=== PATIENT | female | born 1965 | race Caucasian/White ===

== ENCOUNTER 2017-08-10 16:18 | Emergency (ER) | payer OTHER ==
[2017-08-10 16:39] VITALS: BP 144/84
[2017-08-10] MEDS ORDERED: IBUPROFEN 600 MG TABLET PO ONE (17:35)
[2017-08-10] MEDS ORDERED: CYCLOBENZAPRINE HCL 10 MG TABLET PO ONE (17:35)
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
== END 2017-08-10 18:51 | disposition home or self-care (01) ==
LOC: ER 16:18
DX: S40.012A Contusion of left shoulder, initial encounter (principal); S60.222A Contusion of left hand, initial encounter; S60.221A Contusion of right hand, initial encounter; M79.602 Pain in left arm; M79.652 Pain in left thigh; M54.2 Cervicalgia; R51 Headache; M54.9 Dorsalgia, unspecified; V43.52XA Car driver injured in collision with other type car in traffic accident, initial encounter
CPT/HCPCS: 70450; 71250; 72125; 99284